=== PATIENT | male | born 1970 ===

== ENCOUNTER 2023-06-01 10:00 | Inpatient (IN) | payer OTHER ==
[~2023-06-01] VITALS: Ht 172.7 cm; Wt 106.6 kg
[2023-06-01] MEDS ORDERED: COZAAR50 MG PO (13:06)
[2023-06-01] MEDS ORDERED: ATORVASTATIN CA40 MG PO (13:06)
[2023-06-01] MEDS ORDERED: GLUMETZA500 MG PO (13:07)
[2023-06-04] MEDS ORDERED: DESITIN57 G1 (10:35)
== END 2023-06-07 13:42 | disposition home or self-care (01) | DRG 330 ==
LOC: O/R 06-04 06:35 → SURH 06-04 06:35 → SURG 06-04 07:00 → SURH 06-04 15:04 → O/R 06-04 16:51 → SURH 06-04 16:52
PROVIDERS: ADMIT Colon & Rectal Surgery; ATTEND Colon & Rectal Surgery
PROC: 0DNW4ZZ Release Peritoneum, Percutaneous Endoscopic Approach (ICD-10-PCS; 2023-06-04)
PROC: 0DBP8ZX Excision of Rectum, Via Natural or Artificial Opening Endoscopic, Diagnostic (ICD-10-PCS; 2023-06-04)
PROC: 0D1L4Z4 Bypass Transverse Colon to Cutaneous, Percutaneous Endoscopic Approach (ICD-10-PCS; principal; 2023-06-04 07:00)
DX: C18.4 Malignant neoplasm of transverse colon (principal); C78.00 Secondary malignant neoplasm of unspecified lung; C78.7 Secondary malignant neoplasm of liver and intrahepatic bile duct; K66.0 Peritoneal adhesions (postprocedural) (postinfection); D12.8 Benign neoplasm of rectum; R59.0 Localized enlarged lymph nodes; Z20.822 Contact with and (suspected) exposure to COVID-19; Z93.3 Colostomy status; I10 Essential (primary) hypertension; E11.9 Type 2 diabetes mellitus without complications; Z79.4 Long term (current) use of insulin